=== PATIENT | female | born 1975 | race Caucasian/White ===

== ENCOUNTER 2022-04-26 08:16 | Outpatient (CLI) | payer OTHER ==
[2022-04-26] MEDS ORDERED: Iopamidol 370 76% 100 ML VIAL ONE (12:54)
== END 2022-04-26 08:17 | disposition home or self-care (01) ==
LOC: CT 08:16
DX: R10.9 Unspecified abdominal pain (principal); R07.89 Other chest pain; B34.9 Viral infection, unspecified
CPT/HCPCS: 71260; 74177; Q9967